=== PATIENT | male | born 1990 | race Caucasian/White ===

== ENCOUNTER 2017-04-26 19:46 | Emergency (ER) | payer MEDICAID ==
[2017-04-26 22:13] VITALS: BP 120/75
== END 2017-04-26 22:13 | disposition home or self-care (01) ==
LOC: ED 19:46
DX: S70.02XA Contusion of left hip, initial encounter (principal); S80.02XA Contusion of left knee, initial encounter; S80.12XA Contusion of left lower leg, initial encounter; R03.0 Elevated blood-pressure reading, without diagnosis of hypertension; V49.9XXA Car occupant (driver) (passenger) injured in unspecified traffic accident, initial encounter; Y93.89 Activity, other specified; Y92.89 Other specified places as the place of occurrence of the external cause; Y99.8 Other external cause status